=== PATIENT | female | born 1980 | race Caucasian/White ===

== ENCOUNTER 2020-05-21 12:55 | Observation (INO) | payer BC ==
[~2020-05-21] VITALS: Ht 170.2 cm; Wt 64.3 kg
[2020-05-21] MEDS ORDERED: OMNIPAQUE 350 MG/ML, 100ML BOTTLE ONE (13:00)
--- NOTE | 2020-05-21 13:32 | NUR ---
PT STATED "ON AND OFF CHEST PAIN WITH SOME DIZZINESS FOR THE LAST MONTH" PT DENIED CURRENT PAIN AND DIZZINESS AT THIS TIME.
[2020-05-21] MEDS ORDERED: ASPIRIN 81 MG TABLET CHEW PO ONE (14:00)
[2020-05-21] MEDS ORDERED: ASPIRIN 81 MG TABLET CHEW ONE (14:10)
[2020-05-21 14:28] LABS: BASOPHILS # (AUTO) 0.04 x10^3/uL (0-0.1); BASOPHILS % (AUTO) 1 % (0-1); EOSINOPHILS # (AUTO) 0.32 x10^3/uL (0-0.4); EOSINOPHILS % (AUTO) 4 % (1-7); LYMPHOCYTES # (AUTO) 0.62 x10^3/uL (1-3.4); LYMPHOCYTES % (AUTO) 8 % (22-44); MD NO; MEAN CORPUSCULAR HGB CONC 32.8 g/dL (32.4-35.8); MEAN CORPUSCULAR VOLUME 100.6 fL (80-100); MEAN PLATELET VOLUME 7.5 fL (7.4-10.4); MONOCYTES # (AUTO) 0.77 x10^3/uL (0.2-0.8); MONOCYTES % (AUTO) 11 % (2-9); NEUTROPHILS % (AUTO) 76 % (42-75); PLATELET COUNT 379 x10^3/uL (130-400); RED BLOOD COUNT 3.93 x10^6/uL (3.82-5.3); RED CELL DISTRIBUTION WIDTH 12.4 % (9.6-15.2)
[2020-05-21 14:38] LABS: ALANINE AMINOTRANSFERASE 17 U/L (12-78); ALBUMIN 3.6 g/dL (3.4-5.0); ANION GAP 10 mmol/L (5-15); CHLORIDE 108 mmol/L (98-107); CREATININE 0.65 mg/dL (0.55-1.02)
[2020-05-21 14:42] LABS: ALKALINE PHOSPHATASE 111 U/L (45-117); BILIRUBIN,TOTAL 0.5 mg/dL (0.2-1.0); TOTAL PROTEIN 7.4 g/dL (6.4-8.2); TROPONIN I < 0.015 ng/mL (0.000-0.045)
[2020-05-21] MEDS ORDERED: SODIUM CHLORIDE FLUSH 10ML SYR IVF ONE (15:30)
[2020-05-21] MEDS ORDERED: hydrALAzine 20 MG/ML, 1ML IVPush PRN (18:30)
[2020-05-21] MEDS ORDERED: POLYETHYLENE GLYCOL 17 GM PACKET PO PRN (18:30)
[2020-05-21] MEDS ORDERED: ACETAMINOPHEN 325 MG TABLET PO PRN (18:30)
[2020-05-21] MEDS ORDERED: ONDANSETRON ODT 4 MG PO PRN (18:30)
[2020-05-21] MEDS ORDERED: ONDANSETRON 2MG/ML, 2ML IVPush PRN (18:30)
[2020-05-21] MEDS ORDERED: morphine SULFATE 10 MG/ML, 1ML IVPush PRN (18:30)
[2020-05-21] MEDS ORDERED: BISACODYL 10 MG SUPP PR PRN (18:30)
[2020-05-21 19:29] VITALS: BP 112/78
[2020-05-21] MEDS: FAMOTIDINE 20 MG TABLET PO SCH (21:18)
[2020-05-21] MEDS: ACETAMINOPHEN 325 MG TABLET PO PRN (21:20)
[2020-05-21] MEDS: SODIUM CHLORIDE FLUSH 10ML SYR IVF SCH (21:20)
[2020-05-22 00:54] VITALS: BP 111/73
[2020-05-22 05:23] LABS: BASOPHILS # (AUTO) 0.06 x10^3/uL (0-0.1); BASOPHILS % (AUTO) 1 % (0-1); EOSINOPHILS # (AUTO) 0.73 x10^3/uL (0-0.4); EOSINOPHILS % (AUTO) 13 % (1-7); LYMPHOCYTES # (AUTO) 0.68 x10^3/uL (1-3.4); LYMPHOCYTES % (AUTO) 12 % (22-44); MD NO; MEAN CORPUSCULAR HEMOGLOBIN 33.3 pg (27.0-34.8); MEAN CORPUSCULAR HGB CONC 33.6 g/dL (32.4-35.8); MEAN CORPUSCULAR VOLUME 99.3 fL (80-100); MONOCYTES # (AUTO) 0.78 x10^3/uL (0.2-0.8); MONOCYTES % (AUTO) 14 % (2-9); NEUTROPHILS # (AUTO) 3.32 x10^3/uL (1.8-6.8); NEUTROPHILS % (AUTO) 60 % (42-75); PLATELET COUNT 326 x10^3/uL (130-400); RED CELL DISTRIBUTION WIDTH 12.4 % (9.6-15.2)
[2020-05-22 05:27] LABS: ALBUMIN 3.1 g/dL (3.4-5.0); ANION GAP 8 mmol/L (5-15); CALCIUM 8.5 mg/dL (8.5-10.1); CHLORIDE 108 mmol/L (98-107)
[2020-05-22 05:32] LABS: ALANINE AMINOTRANSFERASE 16 U/L (12-78); ALKALINE PHOSPHATASE 92 U/L (45-117); BILIRUBIN,TOTAL 0.6 mg/dL (0.2-1.0); CREATININE 0.62 mg/dL (0.55-1.02)
[2020-05-22 06:36] VITALS: BP 119/82
[2020-05-22] MEDS ORDERED: CYANOCOBALAMIN 1,000 MCG/ML, 1ML IM SCH (09:00)
[2020-05-22] MEDS: FAMOTIDINE 20 MG TABLET PO SCH ×2 (09:30→20:19)
[2020-05-22] MEDS: SENNA/DOCUSATE TABLET PO SCH (09:30)
[2020-05-22] MEDS: ACETAMINOPHEN 325 MG TABLET PO PRN ×3 (09:31→20:19)
[2020-05-22] MEDS: SODIUM CHLORIDE FLUSH 10ML SYR IVF SCH ×2 (09:31→20:20)
[2020-05-22 12:00] VITALS: BP_SYST 109; BP_SYST 118; BP_DIAS 72; BP_DIAS 74; BP_DIAS 77
[2020-05-22] MEDS ORDERED: FENTANYL PF 100 MCG/2ML ONE (13:50)
[2020-05-22 20:48] VITALS: BP 127/85
[2020-05-22] MEDS: DIPHENHYDRAMINE 25 MG CAPSULE PO PRN (22:38)
[2020-05-23] MEDS: DIPHENHYDRAMINE 25 MG CAPSULE PO PRN (00:53)
[2020-05-23] MEDS: ACETAMINOPHEN 325 MG TABLET PO PRN ×3 (00:54→15:32)
[2020-05-23 00:56] VITALS: BP 114/79
[2020-05-23 07:33] VITALS: BP 106/72
[2020-05-23] MEDS: FAMOTIDINE 20 MG TABLET PO SCH (08:00)
[2020-05-23] MEDS: SENNA/DOCUSATE TABLET PO SCH ×2 (08:00→08:04)
[2020-05-23] MEDS: SODIUM CHLORIDE FLUSH 10ML SYR IVF SCH (08:00)
[2020-05-23 13:39] VITALS: BP 116/77
== END 2020-05-23 15:55 | disposition home or self-care (01) ==
LOC: ED 14:41 → 4NW 17:27 → INTOOBSV 17:27 → DCLOUNGE 05-23 15:45
PROVIDERS: ADMIT Family Medicine; ATTEND Internal Medicine
DX: J98.59 Other diseases of mediastinum, not elsewhere classified (principal); Z20.828 Contact with and (suspected) exposure to other viral communicable diseases; E07.89 Other specified disorders of thyroid; D75.89 Other specified diseases of blood and blood-forming organs; Z79.899 Other long term (current) drug therapy
CPT/HCPCS: 32405; 36415; 70450; 71045; 71260; 77012; 80053; 82607; 83690; 83735; 84100; 84443; 84484; 85025; 88305; 93005; 96372; 99285; G0378; J3010; J3420; Q0163; Q9967